=== PATIENT | female | born 1950 | race Hispanic/Latino ===

== ENCOUNTER 2022-10-23 11:40 | Emergency (ER) | payer OTHER ==
[~2022-10-23] VITALS: Ht 152.4 cm; Wt 79.4 kg
[2022-10-23 12:19] LABS: EOSINOPHILS % (AUTO) 2.6 % (0.0-8.0); LYMPHOCYTES % (AUTO) 26.8 % (21.0-51.0); MEAN CORPUSCULAR HEMOGLOBIN 28.2 pg (27.0-33.0); MEAN CORPUSCULAR HGB CONC 33.2 g/dL (32.0-36.0); MEAN CORPUSCULAR VOLUME 84.9 fL (79-99); MONOCYTES % (AUTO) 6.4 % (3.0-13.0); NEUTROPHILS % (AUTO) 62.9 % (40.0-77.0); PLATELET COUNT (AUTO) 176 K/uL (130-400); RED BLOOD CELL COUNT(AUTO) 4.83 MIL/uL (4.00-5.50); RED CELL DISTRIBUTION WIDTH 13.2 % (11.0-15.5); WHITE BLOOD COUNT (AUTO) 7.3 K/uL (4.8-10.8)
[2022-10-23 12:25] LABS: CREATININE 0.8 mg/dL (0.5-1.5)
[2022-10-23 12:31] LABS: ALBUMIN 3.6 g/dL (3.5-5.0); MAGNESIUM 1.8 mg/dL (1.80-2.40); TOTAL PROTEIN, SERUM 7.7 g/dL (6.0-8.3)
[2022-10-23 12:40] LABS: B-TYPE NATRIURETIC PEPTIDE 135 pg/mL (0-100)
[2022-10-23] MEDS ORDERED: LISI10TA24 PO ×2 (13:58→16:59)
[2022-10-23] MEDS ORDERED: HYDRALAZINE 20MG/ML VIAL IV ONE (14:00)
[2022-10-23] MEDS ORDERED: CLONIDINE HCL 0.2 MG TABLET PO ONE (15:30)
[2022-10-23] MEDS ORDERED: AMLO-257 PO (17:19)
[2022-10-23 17:36] VITALS: BP 140/50
== END 2022-10-23 17:40 | disposition home or self-care (01) ==
LOC: EDH 11:40
DX: I10 Essential (primary) hypertension (principal); R07.89 Other chest pain; E78.00 Pure hypercholesterolemia, unspecified; Z79.899 Other long term (current) drug therapy; Z88.5 Allergy status to narcotic agent; Z88.8 Allergy status to other drugs, medicaments and biological substances; Z88.6 Allergy status to analgesic agent; Z85.3 Personal history of malignant neoplasm of breast
CPT/HCPCS: 99285; 83735; 84484; 80053; 83880; 85025; 36415; 71045; 96374; 93005; J0360